=== PATIENT | male | born 1935 | race American Indian/Alaskan Native ===

== ENCOUNTER 2018-09-17 11:58 | Inpatient (IN) | payer MEDICARE ==
--- NOTE | 2018-09-17 13:42 | RAD ---
HISTORY: left pleuritic pain COMPARISON: None available TECHNIQUE: Chest, one view. FINDINGS: LUNGS: No focal consolidation. Please note that chest x-ray has limited sensitivity for the detection of pulmonary masses. PLEURA: No significant pleural effusion identified. No definite pneumothorax . CARDIOVASCULAR: Cardiomegaly. Ectatic aorta. Atherosclerotic calcifications of the aorta. OSSEOUS STRUCTURES: No acute osseous abnormality identified. VISUALIZED UPPER ABDOMEN: Unremarkable. OTHER FINDINGS: None. IMPRESSION: Cardiomegaly.
[2018-09-17 13:50] LABS: BASO # 0.1 K/uL (0.0-0.2); BASO % 0.7 % (0.0-2.0); EOS # 0.1 K/uL (0.0-0.7); EOS % 1.2 % (0.0-4.0); LYMPH % 36.8 % (20.0-40.0); MEAN CELL VOLUME 93.2 fL (80.0-94.0); MEAN CORPUSCULAR HEMOGLOBIN 31.5 pg (27.0-31.0); MEAN CORPUSCULAR HGB CONC 33.8 g/dL (33.0-37.0); MEAN PLATELET VOLUME 7.6 fL (7.2-11.7); MONO # 0.4 K/uL (0.0-0.8); MONO % 5.5 % (0.0-10.0); NEUT # 4.5 K/uL (1.8-7.0); NEUT % 55.8 % (50.0-75.0); RBC 4.43 Mil/uL (4.40-5.90); RED CELL DISTRIBUTION WIDTH 13.2 % (11.5-14.5)
[2018-09-17 14:04] LABS: SQUAMOUS EPITHIAL 1 /hpf (0-5); URINE BILIRUBIN NEGATIVE (NEGATIVE); URINE BLOOD NEGATIVE (NEGATIVE); URINE CLARITY Clear (Clear); URINE COLOR Yellow (YELLOW); URINE GLUCOSE (UA) NORMAL (Normal); URINE LEUKOCYTE ESTERASE NEG Leu/uL (Negative); URINE PROTEIN NEGATIVE (NEGATIVE); URINE UROBILINOGEN NORMAL mg/dL (0.2-1.0)
--- NOTE | 2018-09-17 14:47 | C.PDOC ---
History Of Present Illness 82 year old male presents to the ED for evaluation of difficulty urinating for a few months. The patient reports needing to push in order to start urinating and getting up several times per night to urinate. He also complains of left posterior mid-back pain that is worse with deep breath and certain movements. Denies chest pain, SOB, vomiting, fever, chills, and any other associated symptoms. Time Seen by Provider: 09/17/18 12:07 Chief Complaint (Nursing): Male Genitourinary History Per: Patient History/Exam Limitations: no limitations Onset/Duration Of Symptoms: Other (months. ) Current Symptoms Are (Timing): Still Present Recent travel outside of the [place]: No Past Medical History Reviewed: Historical Data, Nursing Documentation, Vital Signs Vital Signs: Last Vital Signs Temp 97.5 F L 09/17/18 12:02 Pulse 82 09/17/18 12:02 Resp 19 09/17/18 12:02 BP 158/92 H 09/17/18 12:02 Pulse Ox 98 09/17/18 12:02 - [facility] Procedures CORONAR ARTERIOGR-2 CATH (02/16/06) LEFT HEART CARDIAC CATH (02/16/06) LT HEART ANGIOCARDIOGRAM (02/16/06) Family History: States: Unknown Family Hx - Social History Hx Alcohol Use: No Hx Substance Use: No - Immunization History Hx Tetanus Toxoid Vaccination: No Hx Influenza Vaccination: Yes Hx Pneumococcal Vaccination: No Review Of Systems Except As Marked, All Systems Reviewed And Found Negative. Constitutional: Negative for: Fever, Chills Genitourinary: Positive for: Other (difficulty urinating.) Musculoskeletal: Positive for: Back Pain (left posterior mid-back pain.) Psych: Positive for: Depression Physical Exam - Physical Exam Appears: Well, Non-toxic, No Acute Distress Skin: Normal Color, Warm, Dry Head: Atraumatic, Normacephalic Eye(s): bilateral: Normal Inspection Oral Mucosa: Moist Neck: Normal ROM, Supple Chest: Symmetrical Cardiovascular: Rhythm Regular, No Murmur Respiratory: Normal Breath Sounds, No Rales, No Rhonchi, No Wheezing Gastrointestinal/Abdominal: Normal Exam, No Soft, No Tenderness Extremity: Bilateral: Atraumatic, Normal Color And Temperature, Normal ROM Neurological/Psych: Oriented x3, Normal Speech, Normal Cognition ED Course And Treatment - Laboratory Results Result Diagrams: 09/17/18 15:01 09/17/18 15:01 ECG Rhythm: Sinus Rhythm, PVC, Nonspecific Changes Rate From EC O2 Sat by Pulse Oximetry: 98 (RA) Pulse Ox Interpretation: Normal - Other Rad CXR X-Ray: Viewed By Me, Read By Radiologist Interpretation: FINDINGS: LUNGS: No focal consolidation. Please note that chest x-ray has limited sensitivity for the detection of pulmonary masses. PLEURA: No significant pleural effusion identified. No definite pneumothorax . CARDIOVASCULAR: Cardiomegaly. Ectatic aorta. Atherosclerotic calcifications of the aorta. OSSEOUS STRUCTURES: No acute osseous abnormality identified. VISUALIZED UPPER ABDOMEN: Unremarkable. OTHER FINDINGS: None. IMPRESSION: Cardiomegaly. - CT Scan/US Chest CTA Other Rad Studies (CT/US): Read By Radiologist, Radiology Report Reviewed CT/US Interpretation: Accession No. : [id number]. Patient Name / ID : MADISON CABAN / [id number]. Exam Date : 09/17/2018 17:18:12 ( Approved ). Study Comment : Sex / Age : M / 82Y. Creator : Blanche Golden MD. Dictator : Blanche Golden MD. Engineering Officer : Sr. Strategic Sourcing Manager : Blanche Golden MD. Approver2 : Report Date : 09/17/2018 17:37:34. My Comment : . Date of service: 09/17/2018. CTA chest PE protocol. Indication: left pleuritic pain. Technique: Contiguous axial images were obtained through the chest with intravenous contrast enhancement. Sagittal and coronal reconstructions were generated and reviewed. This CT exam was performed using 1 or more of the following dose reduction techniques: Automated exposure control, adjustment of the MAA and/or kV according to patient size, and/or use of iterative reconstruction technique. IV contrast: 100 mL Visipaque 320 IV. . Radiation dose (DLP): 569.7 MGy-cm. Comparison: Chest x-ray performed earlier the same day. Findings: Visualized portions of the inferior thyroid gland appear unremarkable. The mediastinal and hilar vascular structures appear within normal limits. Mild cardiomegaly. Trace pleural effusion. No large central pulmonary embolus. Bilateral segmental pulmonary emboli involving both right upper and lower as well as left lower lobe branches. Pulmonary emboli are also noted within bilateral subsegmental branches in the lower lobes. Bibasilar infiltrates. Trace left pleural effusion. No pneumothorax. Limited visualized portions of the upper abdomen : 1.5 cm right hepatic lobe hypodensity measures approximately 11 HU, possibly cyst. Additional too small to characterize hepatic hypodensity noted inferiorly. Question sclerotic appearance of the osseous structures. Correlate clinically for possibility of metabolic disorder. Somewhat lucent striated appearance of the T10 vertebral body; vertebral body hemangioma is considered however alternatives not excluded. Recommend follow-up MRI of the thoracic spine without and with IV contrast if indicated. Impression: Bilateral pulmonary emboli as above. Question sclerotic appearance of the osseous structures. Correlate clinically for possibility of metabolic disorder. Somewhat lucent striated appearance of the T10 vertebral body; vertebral body hemangioma is considered however alternatives not excluded. Recommend follow-up MRI of the thoracic spine without and with IV contrast if indicated. Bibasilar infiltrates. Trace left pleural effusion. Limited visualized portions of the upper abdomen : 1.5 cm right hepatic lobe hypodensity measures approximately 11 HU, possibly cyst. Additional too small to characterize hepatic hypodensity noted inferiorly. Additional findings as above. Emergent findings discussed with WILMER Puckett on 09/17/18 at 5:28 p.m. Progress Note: Bladder scan is negative for retention. PSA was sent. Blood tests were reviewed, D Dimer is elevated. CTA chest ordered and pos for b/l PE. Case was d/w patient's PMD who requested patient to be admitted to the hospitalist service. Case was d/w Hospitalist personnel scheduler who accepted patient to [facility] for an admission. Heparin bolus and IV drip ordered. Medical Decision Making Medical Decision Making: Plan: -Blood sent. -CXR -Bladder scan. -Urinalysis Disposition - Disposition Disposition: HOSPITALIZED Disposition Time: 18:29 Condition: FAIR - Clinical Impression Clinical Impression: Pulmonary embolism, Pleuritic chest pain, Difficulty urinating - PA / [employer] / Resident Statement MD/DO has reviewed & agrees with the documentation as recorded. - Scribe Statement The provider has reviewed the documentation as recorded by the Scribe (Jania Berkowitz) All medical record entries made by the Scribe were at my direction and personally dictated by me. I have reviewed the chart and agree that the record accurately reflects my personal performance of the history, physical exam, medical decision making, and the department course for this patient. I have also personally directed, reviewed, and agree with the discharge instructions and disposition. Decision To Admit - Pt Status Changed To: Hospital Disposition Of: Inpatient - Admit Certification Admit to Inpatient:: After my assessment, the patient will require hospitalization for at least two midnights. This is because of the severity of symptoms shown, intensity of services needed, and/or the medical risk in this patient being treated as an outpatient. - InPatient: Physician Admission Certification: I certify that this patient requires 2 or more midnights of care for the following reason:: Patient has multiple medical problems including PE, will need more than 2 days of hospitalization. - . Bed Request Type: Telemetry Admitting Physician: Camelia Hernandez Patient Diagnosis: Pulmonary embolism, Pleuritic chest pain, Difficulty urinating
[2018-09-17 14:59] LABS: WHITE BLOOD COUNT 8.1 K/uL (4.8-10.8)
[2018-09-17 15:00] LABS: INR 1.1; PROTHROMBIN TIME 12.4 SECONDS (9.7-12.2)
[2018-09-17 15:01] LABS: D DIMER < 200 ng/mlDDU (0-243); PARTIAL THROMBOPLASTIN TIME 40 SECONDS (21-34)
[2018-09-17 15:05] LABS: BASO % 0.5 % (0.0-2.0); EOS # 0.1 K/uL (0.0-0.7); EOS % 2.8 % (0.0-4.0); HEMOGLOBIN 13.6 g/dL (12.0-18.0); LYMPH # 1.6 K/uL (1.0-4.3); LYMPH % 32.4 % (20.0-40.0); MEAN CELL VOLUME 97.3 fL (80.0-94.0); MEAN CORPUSCULAR HEMOGLOBIN 32.3 pg (27.0-31.0); MEAN CORPUSCULAR HGB CONC 33.1 g/dL (33.0-37.0); MEAN PLATELET VOLUME 8.4 fL (7.2-11.7); MONO # 0.5 K/uL (0.0-0.8); MONO % 10.6 % (0.0-10.0); NEUT # 2.7 K/uL (1.8-7.0); NEUT % 53.7 % (50.0-75.0); RBC 4.22 Mil/uL (4.40-5.90); RED CELL DISTRIBUTION WIDTH 14.7 % (11.5-14.5)
[2018-09-17 15:19] LABS: INR 1.1; PROTHROMBIN TIME 11.8 SECONDS (9.7-12.2)
[2018-09-17 15:37] LABS: ALB/GLOB RATIO 1.5 (1.0-2.1); ALBUMIN 4.2 g/dL (3.5-5.0); ALT/SGPT 12 U/L (21-72); AST/SGOT 21 U/L (17-59); BLOOD UREA NITROGEN 16 mg/dL (9-20); CALCIUM 9.3 mg/dl (8.6-10.4); GFR NON-AFRICAN AMERICAN > 60
[2018-09-17 15:48] LABS: CK-MB 0.78 ng/mL (0.0-3.38)
[2018-09-17] MEDS ORDERED: Iodixanol 320 MG/ML 100 ML BOTTLE IV ONE (16:00)
--- NOTE | 2018-09-17 17:41 | CT ---
Date of service: 09/17/2018 CTA chest PE protocol Indication: left pleuritic pain Technique: Contiguous axial images were obtained through the chest with intravenous contrast enhancement. Sagittal and coronal reconstructions were generated and reviewed. This CT exam was performed using 1 or more of the following dose reduction techniques: Automated exposure control, adjustment of the MAA and/or kV according to patient size, and/or use of iterative reconstruction technique. IV contrast: 100 mL Visipaque 320 IV Radiation dose (DLP): 569.7 MGy-cm. Comparison: Chest x-ray performed earlier the same day. Findings: Visualized portions of the inferior thyroid gland appear unremarkable. The mediastinal and hilar vascular structures appear within normal limits. Mild cardiomegaly. Trace pleural effusion. No large central pulmonary embolus. Bilateral segmental pulmonary emboli involving both right upper and lower as well as left lower lobe branches. Pulmonary emboli are also noted within bilateral subsegmental branches in the lower lobes. Bibasilar infiltrates. Trace left pleural effusion. No pneumothorax. Limited visualized portions of the upper abdomen : 1.5 cm right hepatic lobe hypodensity measures approximately 11 HU, possibly cyst. Additional too small to characterize hepatic hypodensity noted inferiorly. Question sclerotic appearance of the osseous structures. Correlate clinically for possibility of metabolic disorder. Somewhat lucent striated appearance of the T10 vertebral body; vertebral body hemangioma is considered however alternatives not excluded. Recommend follow-up MRI of the thoracic spine without and with IV contrast if indicated. Impression: Bilateral pulmonary emboli as above. Question sclerotic appearance of the osseous structures. Correlate clinically for possibility of metabolic disorder. Somewhat lucent striated appearance of the T10 vertebral body; vertebral body hemangioma is considered however alternatives not excluded. Recommend follow-up MRI of the thoracic spine without and with IV contrast if indicated. Bibasilar infiltrates. Trace left pleural effusion. Limited visualized portions of the upper abdomen : 1.5 cm right hepatic lobe hypodensity measures approximately 11 HU, possibly cyst. Additional too small to characterize hepatic hypodensity noted inferiorly. Additional findings as above. Emergent findings discussed with WILMER Puckett on 09/17/18 at 5:28 p.m.
[2018-09-17] MEDS ORDERED: Heparin 25,000units in D5W 25,000 UNITS/250 ML BAG IV PRN (17:47)
[2018-09-17] MEDS: Heparin25000 units/250ml 1/2NS 25,000 UNITS/250 ML BAG IV PRN (18:37)
[2018-09-17 20:55] VITALS: RESP 20
--- NOTE | 2018-09-17 20:59 | CP.PCM.HP ---
<Adelejosé manuelChico - Last Filed: 09/17/18 20:46> History of Present Illness - History of Present Illness History of Present Illness: PGY-[address] Ivan Patient is an 82 year old male with PMHx DMII and possible BPH who presents with approximately one week of left lower back pain. Patient does note pain is worse with deep inspiration. He has also had increased urinary frequency and urgency without dysuria or fevers. Patient with no history of DVT/PE, does not smoke. He denies shortness of breath or chest pain. No history of asthma, COPD, or CHF. States has to get up 5-6 times thorughout the night to urinate. Right lower back pain does not radiate. No other complaints. Surgeries: CORONAR ARTERIOGR-2 CATH, LEFT HEART CARDIAC CATH (02/16/06), LT HEART ANGIOCARDIOGRAM (02/16/06) Medical Hx: DMII, HTN, BPH (believes he was told he has prostate issue), gout Allergies: NKA Social: Denies smoking, drinking, alcohol use Family hx: Denies Medication: Patient takes home meds for DMII, but unsure what they are, Allopurinol 100 mg po daily, colchicine 0.6 mg po daily PMD: Dr. Reinoso Present on Admission - Present on Admission Any Indicators Present on Admission: No History of DVT/PE: No Review of Systems - Constitutional Constitutional: absent: Chills, Fever - EENT Eyes: absent: Blurred Vision, Pain Nose/Mouth/Throat: absent: Dry Mouth, Mouth Pain - Cardiovascular Cardiovascular: absent: Leg Edema, Palpitations - Respiratory Respiratory: absent: Cough, Dyspnea Additional comments: Back pain with deep inspiration - Gastrointestinal Gastrointestinal: absent: Abdominal Pain, Diarrhea - Genitourinary Genitourinary: Urinary Frequency, Urinary Urgency. absent: Dysuria, Flank Pain - Musculoskeletal Musculoskeletal: absent: Stiffness, Tingling - Integumentary Integumentary: absent: Dry Skin, Pruritus, Rash - Neurological Neurological: absent: Dizziness, Numbness - Psychiatric Psychiatric: Depression. absent: Anxiety - Endocrine Endocrine: Polyuria. absent: Fatigue Past Patient History - Past Social History Smoking Status: Never Smoked - ENDOCRINE/METABOLIC Hx Diabetes Mellitus Type 2: Yes - PSYCHIATRIC Hx Substance Use: No - SURGICAL HISTORY Hx Surgeries: No - ANESTHESIA Hx Anesthesia: No Meds Allergies/Adverse Reactions: Allergies Allergy/AdvReac Type Severity Reaction Status Date / Time No Known Allergies Allergy Verified 09/17/18 12:06 Physical Exam - Constitutional Appears: Non-toxic, No Acute Distress - Head Exam Head Exam: ATRAUMATIC, NORMAL INSPECTION - Eye Exam Eye Exam: EOMI, Normal appearance - ENT Exam ENT Exam: Mucous Membranes Moist - Respiratory Exam Respiratory Exam: Clear to Auscultation Bilateral, NORMAL BREATHING PATTERN. absent: Accessory Muscle Use, Chest Wall Tenderness, Decreased Breath Sounds, Rales, Rhonchi, Wheezes, Respiratory Distress - Cardiovascular Exam Cardiovascular Exam: REGULAR RHYTHM, RRR, +S1, +S2 - GI/Abdominal Exam GI & Abdominal Exam: Normal Bowel Sounds, Soft. absent: Distended, Firm, Tenderness - Extremities Exam Extremities exam: Negative for: pedal edema, tenderness - Back Exam Back exam: NORMAL INSPECTION. absent: paraspinal tenderness - Neurological Exam Neurological exam: Alert, CN II-XII Intact, Oriented x3 - Psychiatric Exam Psychiatric exam: Normal Affect, Normal Mood - Skin Skin Exam: Dry, Intact Results - Vital Signs Recent Vital Signs: Last Vital Signs Temp 98.4 F 09/17/18 15:35 Pulse 80 09/17/18 20:01 Resp 18 09/17/18 17:47 BP 165/95 H 09/17/18 20:01 Pulse Ox 96 09/17/18 20:01 - Labs Result Diagrams: 09/17/18 15:01 09/17/18 15:01 Labs: Laboratory Results - last 24 hr 09/17/18 09/17/18 09/17/18 13:32 13:32 13:32 WBC 8.1 RBC 4.43 Hgb 14.0 Hct 41.3 MCV 93.2 MCH 31.5 H MCHC 33.8 RDW 13.2 Plt Count 313 MPV 7.6 Neut % (Auto) 55.8 Lymph % (Auto) 36.8 Snyder % (Auto) 5.5 Eos % (Auto) 1.2 Baso % (Auto) 0.7 Neut # (Auto) 4.5 Lymph # (Auto) 3.0 Snyder # (Auto) 0.4 Eos # (Auto) 0.1 Baso # (Auto) 0.1 PT 12.4 H INR 1.1 APTT 40 H D-Dimer, Quantitative < 200 Sodium Potassium Chloride Carbon Dioxide Anion Gap BUN Creatinine Est GFR ( Amer) Est GFR (Non-Af Amer) POC Glucose (mg/dL) Random Glucose Calcium Total Bilirubin AST ALT Alkaline Phosphatase Total Creatine Kinase CK-MB (Mass) Troponin I Total Protein Albumin Globulin Albumin/Globulin Ratio Urine Color Yellow Urine Clarity Clear Urine pH 5.0 Ur Specific Neeses 1.018 Urine Protein Negative Urine Glucose (UA) Normal Urine Ketones Negative Urine Blood Negative Urine Nitrate Negative Urine Bilirubin Negative Urine Urobilinogen Normal Ur Leukocyte Esterase Neg Urine WBC (Auto) 1 Urine RBC (Auto) 3 Ur Squamous Epith Cells 1 Hyaline Casts 3-5 H 09/17/18 09/17/18 09/17/18 13:32 15:01 15:01 WBC 5.0 RBC 4.22 L Hgb 13.6 Hct 41.1 MCV 97.3 H D MCH 32.3 H MCHC 33.1 RDW 14.7 H Plt Count 139 D MPV 8.4 Neut % (Auto) 53.7 Lymph % (Auto) 32.4 Snyder % (Auto) 10.6 H Eos % (Auto) 2.8 Baso % (Auto) 0.5 Neut # (Auto) 2.7 Lymph # (Auto) 1.6 Snyder # (Auto) 0.5 Eos # (Auto) 0.1 Baso # (Auto) 0.0 PT 11.8 INR 1.1 APTT 33 D D-Dimer, Quantitative 1927 H Sodium Cancelled Potassium Cancelled Chloride Cancelled Carbon Dioxide Cancelled Anion Gap Cancelled BUN Cancelled Creatinine Cancelled Est GFR ( Amer) Cancelled Est GFR (Non-Af Amer) Cancelled POC Glucose (mg/dL) Random Glucose Cancelled Calcium Cancelled Total Bilirubin Cancelled AST Cancelled ALT Cancelled Alkaline Phosphatase Cancelled Total Creatine Kinase Cancelled CK-MB (Mass) Cancelled Troponin I Cancelled Total Protein Cancelled Albumin Cancelled Globulin Cancelled Albumin/Globulin Ratio Cancelled Urine Color Urine Clarity Urine pH Ur Specific Neeses Urine Protein Urine Glucose (UA) Urine Ketones Urine Blood Urine Nitrate Urine Bilirubin Urine Urobilinogen Ur Leukocyte Esterase Urine WBC (Auto) Urine RBC (Auto) Ur Squamous Epith Cells Hyaline Casts 09/17/18 09/17/18 15:01 18:37 WBC RBC Hgb Hct MCV MCH MCHC RDW Plt Count MPV Neut % (Auto) Lymph % (Auto) Snyder % (Auto) Eos % (Auto) Baso % (Auto) Neut # (Auto) Lymph # (Auto) Snyder # (Auto) Eos # (Auto) Baso # (Auto) PT INR APTT D-Dimer, Quantitative Sodium 138 Potassium 4.0 Chloride 104 Carbon Dioxide 26 Anion Gap 12 BUN 16 Creatinine 1.1 Est GFR ( Amer) > 60 Est GFR (Non-Af Amer) > 60 POC Glucose (mg/dL) 98 Random Glucose 105 Calcium 9.3 Total Bilirubin 0.7 AST 21 ALT 12 L Alkaline Phosphatase 75 Total Creatine Kinase 67 CK-MB (Mass) 0.78 Troponin I < 0.0120 Total Protein 7.0 Albumin 4.2 Globulin 2.8 Albumin/Globulin Ratio 1.5 Urine Color Urine Clarity Urine pH Ur Specific Neeses Urine Protein Urine Glucose (UA) Urine Ketones Urine Blood Urine Nitrate Urine Bilirubin Urine Urobilinogen Ur Leukocyte Esterase Urine WBC (Auto) Urine RBC (Auto) Ur Squamous Epith Cells Hyaline Casts Assessment & Plan - Assessment and Plan (Free Text) Assessment: Acute Pulmonary Embolism: - D Dimer 1926 --> CT Angio ordered in ED - CXR 09/17: IMPRESSION: Cardiomegaly. - CT angio Chest 09/17: Bilateral pulmonary emboli as above. Question sclerotic appearance of the osseous structures. Correlate clinically for possibility of metabolic disorder. Somewhat lucent striated appearance of the T10 vertebral b nik; vertebral body hemangioma is considered however alternatives not excluded. Recommend follow-up MRI of the thoracic spine without and with IV contrast if indicated. Bibasilar infiltrates. Trace left pleural effusion. Limited visualized portions of the upper abdomen : 1.5 cm right hepatic lobe hypodensity measures approximately 11 HU, possibly cyst. Additional too small to characterize hepatic hypodensity noted inferiorly. - Heparin Drip - ASA 81 daily - Fall precautions - Echo - f/u - Cardio consultted, Dr. Reinoso - f/u recs HTN: - Losartan 50 mg PO daily DM II: - ISS - Accuchecks Gout: - Allopurinol 100 mg PO daily - Colchicine 0.6 mg PO daily PPx: - Heparin drip - Fall precautions - Protonix 40 mg PO daily d/w Dr. Marzena Vital, PGY-1 <Negro Ivan - Last Filed: 09/18/18 06:27> Results - Vital Signs Recent Vital Signs: Last Vital Signs Temp 99.6 F 09/18/18 04:36 Pulse 75 09/18/18 04:36 Resp 20 09/18/18 04:36 BP 132/76 09/18/18 04:36 Pulse Ox 95 09/18/18 04:36 - Labs Result Diagrams: 09/17/18 15:01 09/17/18 15:01 Labs: Laboratory Results - last 24 hr 09/17/18 09/17/18 09/17/18 13:32 13:32 13:32 WBC 8.1 RBC 4.43 Hgb 14.0 Hct 41.3 MCV 93.2 MCH 31.5 H MCHC 33.8 RDW 13.2 Plt Count 313 MPV 7.6 Neut % (Auto) 55.8 Lymph % (Auto) 36.8 Snyder % (Auto) 5.5 Eos % (Auto) 1.2 Baso % (Auto) 0.7 Neut # (Auto) 4.5 Lymph # (Auto) 3.0 Snyder # (Auto) 0.4 Eos # (Auto) 0.1 Baso # (Auto) 0.1 PT 12.4 H INR 1.1 APTT 40 H D-Dimer, Quantitative < 200 Sodium Potassium Chloride Carbon Dioxide Anion Gap BUN Creatinine Est GFR ( Amer) Est GFR (Non-Af Amer) POC Glucose (mg/dL) Random Glucose Calcium Total Bilirubin AST ALT Alkaline Phosphatase Total Creatine Kinase CK-MB (Mass) Troponin I Total Protein Albumin Globulin Albumin/Globulin Ratio Urine Color Yellow Urine Clarity Clear Urine pH 5.0 Ur Specific Neeses 1.018 Urine Protein Negative Urine Glucose (UA) Normal Urine Ketones Negative Urine Blood Negative Urine Nitrate Negative Urine Bilirubin Negative Urine Urobilinogen Normal Ur Leukocyte Esterase Neg Urine WBC (Auto) 1 Urine RBC (Auto) 3 Ur Squamous Epith Cells 1 Hyaline Casts 3-5 H 09/17/18 09/17/18 09/17/18 13:32 15:01 15:01 WBC 5.0 RBC 4.22 L Hgb 13.6 Hct 41.1 MCV 97.3 H D MCH 32.3 H MCHC 33.1 RDW 14.7 H Plt Count 139 D MPV 8.4 Neut % (Auto) 53.7 Lymph % (Auto) 32.4 Snyder % (Auto) 10.6 H Eos % (Auto) 2.8 Baso % (Auto) 0.5 Neut # (Auto) 2.7 Lymph # (Auto) 1.6 Snyder # (Auto) 0.5 Eos # (Auto) 0.1 Baso # (Auto) 0.0 PT 11.8 INR 1.1 APTT 33 D D-Dimer, Quantitative 1927 H Sodium Cancelled Potassium Cancelled Chloride Cancelled Carbon Dioxide Cancelled Anion Gap Cancelled BUN Cancelled Creatinine Cancelled Est GFR ( Amer) Cancelled Est GFR (Non-Af Amer) Cancelled POC Glucose (mg/dL) Random Glucose Cancelled Calcium Cancelled Total Bilirubin Cancelled AST Cancelled ALT Cancelled Alkaline Phosphatase Cancelled Total Creatine Kinase Cancelled CK-MB (Mass) Cancelled Troponin I Cancelled Total Protein Cancelled Albumin Cancelled Globulin Cancelled Albumin/Globulin Ratio Cancelled Urine Color Urine Clarity Urine pH Ur Specific Neeses Urine Protein Urine Glucose (UA) Urine Ketones Urine Blood Urine Nitrate Urine Bilirubin Urine Urobilinogen Ur Leukocyte Esterase Urine WBC (Auto) Urine RBC (Auto) Ur Squamous Epith Cells Hyaline Casts 09/17/18 09/17/18 09/18/18 15:01 18:37 01:33 WBC RBC Hgb Hct MCV MCH MCHC RDW Plt Count MPV Neut % (Auto) Lymph % (Auto) Snyder % (Auto) Eos % (Auto) Baso % (Auto) Neut # (Auto) Lymph # (Auto) Snyder # (Auto) Eos # (Auto) Baso # (Auto) PT INR APTT 58 H D D-Dimer, Quantitative Sodium 138 Potassium 4.0 Chloride 104 Carbon Dioxide 26 Anion Gap 12 BUN 16 Creatinine 1.1 Est GFR ( Amer) > 60 Est GFR (Non-Af Amer) > 60 POC Glucose (mg/dL) 98 Random Glucose 105 Calcium 9.3 Total Bilirubin 0.7 AST 21 ALT 12 L Alkaline Phosphatase 75 Total Creatine Kinase 67 CK-MB (Mass) 0.78 Troponin I < 0.0120 Total Protein 7.0 Albumin 4.2 Globulin 2.8 Albumin/Globulin Ratio 1.5 Urine Color Urine Clarity Urine pH Ur Specific Neeses Urine Protein Urine Glucose (UA) Urine Ketones Urine Blood Urine Nitrate Urine Bilirubin Urine Urobilinogen Ur Leukocyte Esterase Urine WBC (Auto) Urine RBC (Auto) Ur Squamous Epith Cells Hyaline Casts Assessment & Plan - Date & Time Date: 09/18/18 (I have seen and examined the patient. I agree with the findings and plan of care as documented by Dr. Vital. Patient with acute pulmonary embolism. Heparin Drip. 2D echo. Also with history of hypertension and diabetes. Continue home meds. NISS and accuchecks. Monitor for acute changes.) Time: 06:26 Attending/Attestation - Attestation I have personally seen and examined this patient.: Yes I have fully participated in the care of the patient.: Yes I have reviewed all pertinent clinical information: Yes
[2018-09-17] MEDS: (Novolin N) Insulin Human Isophane (NPH) 100 u/ml 10 ml vial SC SCH (21:37)
[2018-09-18] MEDS: Pantoprazole 40 mg Susp UD PO SCH (05:28)
[2018-09-18 08:34] LABS: BASO # 0.1 K/uL (0.0-0.2); EOS # 0.1 K/uL (0.0-0.7); HEMOGLOBIN 13.9 g/dL (12.0-18.0); LYMPH # 1.5 K/uL (1.0-4.3); MEAN CELL VOLUME 95.6 fL (80.0-94.0); MEAN CORPUSCULAR HEMOGLOBIN 32.3 pg (27.0-31.0); MEAN CORPUSCULAR HGB CONC 33.8 g/dL (33.0-37.0); MEAN PLATELET VOLUME 8.1 fL (7.2-11.7); MONO # 0.6 K/uL (0.0-0.8); NEUT # 3.7 K/uL (1.8-7.0); RBC 4.31 Mil/uL (4.40-5.90); RED CELL DISTRIBUTION WIDTH 14.4 % (11.5-14.5); WHITE BLOOD COUNT 5.9 K/uL (4.8-10.8)
[2018-09-18] MEDS: (Novolin N) Insulin Human Isophane (NPH) 100 u/ml 10 ml vial SC SCH ×3 (08:54→16:30)
[2018-09-18 09:05] LABS: ALB/GLOB RATIO 1.4 (1.0-2.1); ALBUMIN 4.1 g/dL (3.5-5.0); ALT/SGPT 8 U/L (21-72); AST/SGOT 15 U/L (17-59); BLOOD UREA NITROGEN 14 mg/dL (9-20); CALCIUM 9.4 mg/dl (8.6-10.4); GFR NON-AFRICAN AMERICAN > 60
--- NOTE | 2018-09-18 19:18 | CP.PCM.PN ---
Subjective - Date & Time of Evaluation Date of Evaluation: 09/18/18 Time of Evaluation: 09:00 - Subjective Subjective: Patient seen and examined at bedside. No overnight events reported. Patient does complain of lateral thoracic pain that radiates to his back and worsens with deep inspiration. He denies any fever, chills, Chest Pain, Abdominal Pain, nausea, vomiting, changes in bowel habits or urinary symptoms. Objective - Vital Signs/Intake and Output Vital Signs (last 24 hours): Temp Pulse Resp BP Pulse Ox 97.7 F 91 H 20 134/81 97 09/18/18 15:00 09/18/18 16:30 09/18/18 15:00 09/18/18 15:00 09/18/18 15:00 Intake and Output: 09/18/18 09/19/18 18:59 06:59 Intake Total 320.8 Output Total 1000 Balance -679.2 - Medications Medications: Current Medications Allopurinol (Zyloprim) 100 mg PO DAILY [facility] Last Admin: 09/18/18 09:15 Dose: 100 mg Aspirin (Ecotrin) 81 mg PO DAILY [facility] Last Admin: 09/18/18 09:15 Dose: 81 mg Colchicine (Colocrys) 0.6 mg PO DAILY [facility] Last Admin: 09/18/18 09:14 Dose: 0.6 mg Heparin Sodium/Sodium Chloride (Heparin 45208 Units/250ml 1/2 Normal Saline) 25,000 units in 250 mls @ 10.083 mls/hr IV .Q24H PRN; Protocol Last Admin: 09/17/18 18:37 Dose: 11.4 units/kg/hr, 10.083 mls/hr Insulin Human Regular (Novolin R) 0 unit SC ACHS [facility]; Protocol Losartan Potassium (Cozaar) 50 mg PO DAILY [facility] Last Admin: 09/18/18 09:14 Dose: 50 mg Pantoprazole Sodium (Protonix Susp) 40 mg PO 0600 [facility] Last Admin: 09/18/18 05:28 Dose: 40 mg Tamsulosin HCl (Flomax) 0.4 mg PO DAILY [facility] Last Admin: 09/18/18 09:14 Dose: 0.4 mg - Labs Labs: 09/18/18 08:17 09/18/18 08:17 PT 11.8 SECONDS (9.7-12.2) 09/17/18 15:01 INR 1.1 09/17/18 15:01 APTT 61 SECONDS (21-34) H 09/18/18 08:17 - Additional Findings Additional findings: - Constitutional Appears: Non-toxic, No Acute Distress - Head Exam Head Exam: ATRAUMATIC, NORMAL INSPECTION - Eye Exam Eye Exam: EOMI, Normal appearance - ENT Exam ENT Exam: Mucous Membranes Moist - Respiratory Exam Respiratory Exam: Clear to Auscultation Bilateral, NORMAL BREATHING PATTERN. absent: Accessory Muscle Use, Chest Wall Tenderness, Decreased Breath Sounds, Rales, Rhonchi, Wheezes, Respiratory Distress - Cardiovascular Exam Cardiovascular Exam: REGULAR RHYTHM, RRR, +S1, +S2 - GI/Abdominal Exam GI & Abdominal Exam: Normal Bowel Sounds, Soft. absent: Distended, Firm, Tenderness - Extremities Exam Extremities exam: Negative for: pedal edema, tenderness - Back Exam Back exam: NORMAL INSPECTION. absent: paraspinal tenderness - Neurological Exam Neurological exam: Alert, CN II-XII Intact, Oriented x3 - Psychiatric Exam Psychiatric exam: Normal Affect, Normal Mood - Skin Skin Exam: Dry, Intact Assessment and Plan - Assessment and Plan (Free Text) Assessment: 82 year old male with PMHx DMII admitted for evaluation and treatment of PE Plan: Acute Pulmonary Embolism: - D Dimer 1926 --> CT Angio ordered in ED - CXR 09/17: IMPRESSION: Cardiomegaly. - CT angio Chest 09/17: Bilateral pulmonary emboli as above. Question sclerotic appearance of the osseous structures. Correlate clinically for possibility of metabolic disorder. Somewhat lucent striated appearance of the T10 vertebral body; vertebral body hemangioma is considered however alternatives not excluded. Recommend follow-up MRI of the thoracic spine without and with IV contrast if indicated. Bibasilar infiltrates. Trace left pleural effusion. Limited visualized portions of the upper abdomen : 1.5 cm right hepatic lobe hypodensity measures approximately 11 HU, possibly cyst. Additional too small to characterize hepatic hypodensity noted inferiorly. - Heparin Drip - ASA 81 daily - Fall precautions - Echo - f/u - Cardio consultted, Dr. Reinoso - f/u recs HTN: - Losartan 50 mg PO daily DM II: - ISS - Accuchecks Gout: - Allopurinol 100 mg PO daily - Colchicine 0.6 mg PO daily PPx: - Heparin drip - Fall precautions - Protonix 40 mg PO daily Patient seen and discussed with Attending Gianni Stevens, PGY-2
[2018-09-18] MEDS: Heparin25000 units/250ml 1/2NS 25,000 UNITS/250 ML BAG IV PRN (21:36)
[2018-09-18] MEDS: (Novolin R) Insulin Human Regular 100 units/ml vial SC SCH (21:44)
[2018-09-19] MEDS: Pantoprazole 40 mg Susp UD PO SCH (05:52)
[2018-09-19 06:38] LABS: BASO % 0.7 % (0.0-2.0); EOS # 0.1 K/uL (0.0-0.7); EOS % 1.5 % (0.0-4.0); HEMOGLOBIN 13.9 g/dL (12.0-18.0); LYMPH # 1.6 K/uL (1.0-4.3); LYMPH % 32.7 % (20.0-40.0); MEAN CELL VOLUME 95.2 fL (80.0-94.0); MEAN CORPUSCULAR HEMOGLOBIN 32.8 pg (27.0-31.0); MEAN CORPUSCULAR HGB CONC 34.5 g/dL (33.0-37.0); MEAN PLATELET VOLUME 8.4 fL (7.2-11.7); MONO # 0.6 K/uL (0.0-0.8); MONO % 11.4 % (0.0-10.0); NEUT # 2.6 K/uL (1.8-7.0); NEUT % 53.7 % (50.0-75.0); RBC 4.24 Mil/uL (4.40-5.90); RED CELL DISTRIBUTION WIDTH 14.6 % (11.5-14.5); WHITE BLOOD COUNT 4.9 K/uL (4.8-10.8)
[2018-09-19 06:53] LABS: ALB/GLOB RATIO 1.3 (1.0-2.1); ALT/SGPT 15 U/L (21-72); AST/SGOT 15 U/L (17-59); BLOOD UREA NITROGEN 19 mg/dL (9-20); CALCIUM 9.1 mg/dl (8.6-10.4); GFR NON-AFRICAN AMERICAN 58
[2018-09-19] MEDS: (Novolin R) Insulin Human Regular 100 units/ml vial SC SCH ×2 (08:06→12:57)
[2018-09-19 08:15] VITALS: BP 152/92; TEMP 97.7; O2SAT 97
[2018-09-19 08:47] VITALS: PULSE 87
--- NOTE | 2018-09-19 10:00 | CON ---
DATE: 09/18/2018 REQUESTED BY: Luciana Hernandez MD LOCATION: Presently in room 659 A. REASON FOR CONSULTATION: Requested to see this 82-year-old black male due to chest pain and diagnosis of pulmonary embolism via CT angiogram. HISTORY OF PRESENT ILLNESS: Mr. Tucker is known to me for many years suffering from hypertension, diabetes, gout, BPH etc. who has been totally stable for years; however, yesterday he called me complaining on some exertional shortness of breath and some pain in the left upper back. After discussion over the telephone, I suggested for him to be checked out in the emergency room just in case. The story began several weeks ago after he took a trip in his car to [place] to visit some relatives as he usually does periodically. This took place around the s. After he has been there for several days, he returned back to [place] and right after that he noticed some cough, runny nose, etc. He and his Shi who was also known for many years that his problem was all related to an upper respiratory infection. This situation persisted for several weeks and eventually gradually began to get better, however, over the last several he noticed some shortness of breath on exertion, some rather atypical pain in the left upper back especially with coughing. He denied any sweating of lower extremities. No dizziness. No palpitations or syncope. 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 MEDICATIONS: On arrival includes, metformin, statin, losartan, allopurinol, Colcrys as well as tamsulosin. ALLERGIES: NO KNOWN ALLERGIES FAR I REMEMBER. REVIEW OF SYSTEMS: As mentioned above. No other significant complaint. PHYSICAL EXAMINATION: GENERAL: Reveals a senior black male, very, very pleasant as all his family, in no distress whatsoever. VITAL SIGNS: Relatively stable. Blood pressure slightly elevated in the hospital he gets nervous pulse is regular in the range of about 70 beats per minute via telemetry and occasional to rare PACs. No evidence of any atrophic relation. O2 saturation totally normal. On arrival to the emergency room, in room air, it was 97. SKIN: Warm, dry, no cyanosis or edema. HEENT: Unremarkable for his age. NECK: Supple. No lymphadenopathy or thyromegaly. CHEST: Clear to auscultation. CARDIOVASCULAR: Relatively intact. Jugular veins, carotids normal. Precordium unremarkable. Heart sounds is normal in intensity and regular. Minimal systolic murmur on the left sternal border. ABDOMEN: Unremarkable. CENTRAL NERVOUS SYSTEM: Locomotor also unremarkable. HOSPITAL COURSE: On arrival to the emergency room, he was checked accordingly and most of the investigations performed including a CT angiogram for pulmonary embolism which disclosed subsegmental small bilateral emboli in the both lower lung yañez. CBC was unremarkable. No leukocytosis. Electrolytes normal. Glucose obviously mildly elevated. Renal function unremarkable. D-dimer was elevated about 1000 or so. Chest x-rays slight cardiomegaly and finding of left pleural effusion. No pulmonary infiltrates. Since arrival here, after discussing situation in the emergency room as well as we talked to Dr. Hernandez, he was placed on fractionated heparin and being adjusted according to the aPPT. At this point in time, he is totally asymptomatic. CONCLUSION: Bilateral small subsegmental pulmonary emboli, source not identified yet and probably (perhaps due to lower exts. DVT) began after the long trip by car to [place], stay of origin that he regularly goes there. PLAN: To continue anticoagulation, hopefully to switch him to NOAC such as apixaban 5 mg twice a day as soon as the Duplex of lower extremities performed looking for the source. An echocardiogram which I did at the [facility] of last year obviously discussed with Dr. Hernandez were reviewed once again. In the meantime, his diabetes, hypertension, and gout will continue to be addressed. Vicente Reinoso MD PRIETO
--- NOTE | 2018-09-19 10:56 | CP.PCM.PN ---
Subjective - Date & Time of Evaluation Date of Evaluation: 09/19/18 Time of Evaluation: 10:53 - Subjective Subjective: PGY-[address] Echols Patient seen and examined at bedside. No acute events overnight. Nurse called to inform me that [employer] had reported that dopple US showed LLE DVT. Official report is pending. He is currently on heparin drip. Patient states to me that his symptoms have improved significantly. He is not having shortness of breath. States still has pain sometimes when he coughs, but it is less frequent. Objective - Vital Signs/Intake and Output Vital Signs (last 24 hours): Temp Pulse Resp BP Pulse Ox 97.7 F 87 20 152/92 H 97 09/19/18 07:00 09/19/18 07:00 09/19/18 07:00 09/19/18 07:00 09/19/18 07:00 Intake and Output: 09/19/18 09/19/18 06:59 18:59 Intake Total 851.6 Output Total 900 Balance -48.4 - Medications Medications: Current Medications Allopurinol (Zyloprim) 100 mg PO DAILY [facility] Last Admin: 09/18/18 09:15 Dose: 100 mg Aspirin (Ecotrin) 81 mg PO DAILY [facility] Last Admin: 09/18/18 09:15 Dose: 81 mg Colchicine (Colocrys) 0.6 mg PO DAILY [facility] Last Admin: 09/18/18 09:14 Dose: 0.6 mg Heparin Sodium/Sodium Chloride (Heparin 62252 Units/250ml 1/2 Normal Saline) 25,000 units in 250 mls @ 10.083 mls/hr IV .Q24H PRN; Protocol Last Admin: 09/18/18 21:36 Dose: 11.4 units/kg/hr, 10.083 mls/hr Insulin Human Regular (Novolin R) 0 unit SC ACHS [facility]; Protocol Last Admin: 09/19/18 08:06 Dose: 2 units Losartan Potassium (Cozaar) 50 mg PO DAILY [facility] Last Admin: 09/18/18 09:14 Dose: 50 mg Pantoprazole Sodium (Protonix Susp) 40 mg PO 0600 [facility] Last Admin: 09/19/18 05:52 Dose: 40 mg Tamsulosin HCl (Flomax) 0.4 mg PO DAILY [facility] Last Admin: 09/18/18 09:14 Dose: 0.4 mg - Labs Labs: 09/19/18 06:23 09/19/18 06:23 PT 11.8 SECONDS (9.7-12.2) 09/17/18 15:01 INR 1.1 09/17/18 15:01 APTT 64 SECONDS (21-34) H 09/19/18 06:23
--- NOTE | 2018-09-19 14:59 | CP.PCM.DIS ---
<Ch[place] Vital - Last Filed: 09/19/18 14:44> Provider - Provider Date of Admission: 09/17/18 18:27 Attending physician: Camelia Hernandez MD Consults: 09/17/18 18:36 Physician Consult Stat Comment: Consulting Provider: Vicente Reinoso Consulting Physician: Vicente Reinoso Reason for Consult: PE,r/o Afib Time Spent in preparation of Discharge (in minutes): 45 Diagnosis - Discharge Diagnosis (1) Deep vein thrombosis of left lower extremity Status: Acute (2) Pulmonary embolism Status: Acute Hospital Course - Lab Results Lab Results: Micro Results 09/17/18 13:32 Urine Urine Culture - Final Proteus Mirabilis Most Recent Lab Values WBC 4.9 K/uL (4.8-10.8) 09/19/18 06:23 RBC 4.24 Mil/uL (4.40-5.90) L 09/19/18 06:23 Hgb 13.9 g/dL (12.0-18.0) 09/19/18 06:23 Hct 40.4 % (35.0-51.0) 09/19/18 06:23 MCV 95.2 fL (80.0-94.0) H 09/19/18 06:23 MCH 32.8 pg (27.0-31.0) H 09/19/18 06:23 MCHC 34.5 g/dL (33.0-37.0) 09/19/18 06:23 RDW 14.6 % (11.5-14.5) H 09/19/18 06:23 Plt Count 141 K/uL (130-400) 09/19/18 06:23 MPV 8.4 fL (7.2-11.7) 09/19/18 06:23 Neut % (Auto) 53.7 % (50.0-75.0) 09/19/18 06:23 Lymph % (Auto) 32.7 % (20.0-40.0) 09/19/18 06:23 [place] % (Auto) 11.4 % (0.0-10.0) H 09/19/18 06:23 Eos % (Auto) 1.5 % (0.0-4.0) 09/19/18 06:23 Baso % (Auto) 0.7 % (0.0-2.0) 09/19/18 06:23 Neut # (Auto) 2.6 K/uL (1.8-7.0) 09/19/18 06:23 Lymph # (Auto) 1.6 K/uL (1.0-4.3) 09/19/18 06:23 [place] # (Auto) 0.6 K/uL (0.0-0.8) 09/19/18 06:23 Eos # (Auto) 0.1 K/uL (0.0-0.7) 09/19/18 06:23 Baso # (Auto) 0.0 K/uL (0.0-0.2) 09/19/18 06:23 PT 11.8 SECONDS (9.7-12.2) 09/17/18 15:01 INR 1.1 09/17/18 15:01 APTT 64 SECONDS (21-34) H 09/19/18 06:23 D-Dimer, Quantitative 1927 ng/mlDDU (0-243) H 09/17/18 15:01 Sodium 135 mmol/L (132-148) 09/19/18 06:23 Potassium 3.6 mmol/L (3.6-5.2) 09/19/18 06:23 Chloride 103 mmol/L (98-107) 09/19/18 06:23 Carbon Dioxide 25 mmol/L (22-30) 09/19/18 06:23 Anion Gap 10 (10-20) 09/19/18 06:23 BUN 19 mg/dL (9-20) 09/19/18 06:23 Creatinine 1.2 mg/dL (0.8-1.5) 09/19/18 06:23 Est GFR ( Amer) > 60 09/19/18 06:23 Est GFR (Non-Af Amer) 58 09/19/18 06:23 POC Glucose (mg/dL) 177 mg/dL (65-110) H 09/19/18 06:37 Random Glucose 147 mg/dL (75-110) H 09/19/18 06:23 Calcium 9.1 mg/dl (8.6-10.4) 09/19/18 06:23 Magnesium 1.6 mg/dL (1.6-2.3) 09/18/18 08:17 Total Bilirubin 0.7 mg/dL (0.2-1.3) 09/19/18 06:23 AST 15 U/L (17-59) L 09/19/18 06:23 ALT 15 U/L (21-72) L D 09/19/18 06:23 Alkaline Phosphatase 75 U/L (38-126) 09/19/18 06:23 Total Creatine Kinase 67 U/L (55-170) 09/17/18 15:01 CK-MB (Mass) 0.78 ng/mL (0.0-3.38) 09/17/18 15:01 Troponin I < 0.0120 ng/mL (0.00-0.120) 09/17/18 15:01 Total Protein 7.0 g/dL (6.3-8.3) 09/19/18 06:23 Albumin 4.0 g/dL (3.5-5.0) 09/19/18 06:23 Globulin 3.0 gm/dL (2.2-3.9) 09/19/18 06:23 Albumin/Globulin Ratio 1.3 (1.0-2.1) 09/19/18 06:23 TSH 3rd Generation 1.89 mIU/L (0.46-4.68) 09/18/18 08:17 Urine Color Yellow (YELLOW) 09/17/18 13:32 Urine Clarity Clear (Clear) 09/17/18 13:32 Urine pH 5.0 (5.0-8.0) 09/17/18 13:32 Ur Specific Basye 1.018 (1.003-1.030) 09/17/18 13:32 Urine Protein Negative mg/dL (NEGATIVE) 09/17/18 13:32 Urine Glucose (UA) Normal mg/dL (Normal) 09/17/18 13:32 Urine Ketones Negative mg/dL (NEGATIVE) 09/17/18 13:32 Urine Blood Negative (NEGATIVE) 09/17/18 13:32 Urine Nitrate Negative (NEGATIVE) 09/17/18 13:32 Urine Bilirubin Negative (NEGATIVE) 09/17/18 13:32 Urine Urobilinogen Normal mg/dL (0.2-1.0) 09/17/18 13:32 Ur Leukocyte Esterase Neg Marilee/uL (Negative) 09/17/18 13:32 Urine WBC (Auto) 1 /hpf (0-5) 09/17/18 13:32 Urine RBC (Auto) 3 /hpf (0-3) 09/17/18 13:32 Ur Squamous Epith Cells 1 /hpf (0-5) 09/17/18 13:32 Hyaline Casts 3-5 /lpf (0-2) H 09/17/18 13:32 - Hospital Course Hospital Course: Initial HPI: Patient is an 82 year old male with PMHx DMII and possible BPH who presents with approximately one week of left lower back pain. Patient does note pain is worse with deep inspiration. He has also had increased urinary frequency and urgency without dysuria or fevers. Patient with no history of DVT/PE, does not smoke. He denies shortness of breath or chest pain. No history of asthma, COPD, or CHF. States has to get up 5-6 times thorughout the night to urinate. Right lower back pain does not radiate. No other complaints. Hospital Course: Patient presented with chief complaint of back pain that was worse with inspiration and mild shortness of breath. D-dimer checked in the ED was elevated and subsequent CTA demonstrated bilateral PE. Patient was restarted on home meds and started on heparin drip and cardiology was consulted, Dr. Reinoso (who is also patient's primary) to rule out A fib and placed on telemetry. Patient was sinus throughout stay. Dr. Reinoso reviewed old echo and will follow up with the patient following discharge. Repeat echo done as well is just pending official read. Bilateral dopplers on day of discharge revealed DVT in LLE. Patient was discharged on Eliquis. By day of discharge symptoms had largely resolved. Imaging: - CXR 09/17: Cardiomegaly. - CT angio Chest 09/17: Bilateral pulmonary emboli as above. Question sclerotic appearance of the osseous structures. Correlate clinically for possibility of metabolic disorder. Somewhat lucent striated appearance of the T10 vertebral body; vertebral body hemangioma is considered however alternatives not excluded. Recommend follow-up MRI of the thoracic spine without and with IV contrast if indicated. Bibasilar infiltrates. Trace left pleural effusion. Limited visualized portions of the upper abdomen : 1.5 cm right hepatic lobe hypodensity measures approximately 11 HU, possibly cyst. Additional too small to characterize hepatic hypodensity noted inferiorly. B/l LE duplex 09/19/18 - positive for DVT, pending official read Echo 09/17/18 - pending official read Discharge Exam - Head Exam Head Exam: ATRAUMATIC, NORMAL INSPECTION - Eye Exam Eye Exam: EOMI, Normal appearance - ENT Exam ENT Exam: Mucous Membranes Moist - Respiratory Exam Respiratory Exam: Clear to PA & Lateral, UNREMARKABLE. absent: Accessory Muscle Use, Chest Wall Tenderness, Decreased Breath Sounds, Rhonchi, Wheezes - Cardiovascular Exam Cardiovascular Exam: REGULAR RHYTHM, +S1, +S2 - GI/Abdominal Exam GI & Abdominal Exam: Normal Bowel Sounds, Soft. absent: Tenderness - Extremities Exam Extremities exam: normal inspection - Neurological Exam Neurological exam: Alert, CN II-XII Intact, Oriented x3 - Psychiatric Exam Psychiatric exam: Normal Affect, Normal Mood - Skin Skin Exam: Dry, Intact Discharge Plan - Discharge Medications Prescriptions: RX: Allopurinol [Zyloprim] 100 mg PO DAILY #30 tab RX: Apixaban [Eliquis] 5 mg PO BID #60 tablet Ciprofloxacin [Cipro] 250 mg PO BID #6 tab RX: Colchicine 1 tab PO DAILY #30 capsule RX: Losartan [Cozaar] 50 mg PO DAILY #30 tab RX: metFORMIN [glucOPHAGE] 500 mg PO BID #60 tab RX: Tamsulosin [Flomax] 0.4 mg PO DAILY #30 cap - Follow Up Plan Condition: FAIR Disposition: HOME/ ROUTINE Instructions: Ciprofloxacin (Systemic), Heart Healthy Diet, Diabetes Exchange Diet, Diabetes Diet , Pulmonary Embolism (Blood Clot in the Lungs) (DC), Pleuritic Chest Pain (DC), Apixaban, Metformin, Tamsulosin, Going Home on Blood Thinners Additional Instructions: Patient is cleared for discharge per Dr. Esparza Please continue taking the following medications: -Allopurinol 100 mg one tab by mouth daily at 8am -Colchicine 0.6 mg one tab by mouth daily at 8am -Metformin 500 mg one tab by mouth two times per day at 8am and 8pm -Flomax 0.4 mg one tab by mouth daily at 8am -Cozaar 50 mg one tab by mouth daily at 8am In addition, the following medications have been prescribed which you should start taking: -Eliquis (Apixaban) 5 mg one tab by mouth two times per day at 8am and 8pm -Cipro 250 mg one tab by mouth two times per day at 8am and 8pm for 3 days Please make sure to follow up with Dr. Reinoso regarding your diagnosis of DVT and PE within 5-7 days Please return to ER if symptoms recur or worsen. Referrals: Vicente Reinoso MD [Staff Provider] - <Ru Esparza - Last Filed: 09/19/18 15:27> Provider - Provider Date of Admission: 09/17/18 18:27 Attending physician: Camelia Hernandez MD Consults: 09/17/18 18:36 Physician Consult Stat Comment: Consulting Provider: Vicente Reinoso Consulting Physician: Vicente Reinoso Reason for Consult: PE,r/o Afib Hospital Course - Lab Results Lab Results: Micro Results 09/17/18 13:32 Urine Urine Culture - Final Proteus Mirabilis Most Recent Lab Values WBC 4.9 K/uL (4.8-10.8) 09/19/18 06:23 RBC 4.24 Mil/uL (4.40-5.90) L 09/19/18 06:23 Hgb 13.9 g/dL (12.0-18.0) 09/19/18 06:23 Hct 40.4 % (35.0-51.0) 09/19/18 06:23 MCV 95.2 fL (80.0-94.0) H 09/19/18 06:23 MCH 32.8 pg (27.0-31.0) H 09/19/18 06:23 MCHC 34.5 g/dL (33.0-37.0) 09/19/18 06:23 RDW 14.6 % (11.5-14.5) H 09/19/18 06:23 Plt Count 141 K/uL (130-400) 09/19/18 06:23 MPV 8.4 fL (7.2-11.7) 09/19/18 06:23 Neut % (Auto) 53.7 % (50.0-75.0) 09/19/18 06:23 Lymph % (Auto) 32.7 % (20.0-40.0) 09/19/18 06:23 [place] % (Auto) 11.4 % (0.0-10.0) H 09/19/18 06:23 Eos % (Auto) 1.5 % (0.0-4.0) 09/19/18 06:23 Baso % (Auto) 0.7 % (0.0-2.0) 09/19/18 06:23 Neut # (Auto) 2.6 K/uL (1.8-7.0) 09/19/18 06:23 Lymph # (Auto) 1.6 K/uL (1.0-4.3) 09/19/18 06:23 [place] # (Auto) 0.6 K/uL (0.0-0.8) 09/19/18 06:23 Eos # (Auto) 0.1 K/uL (0.0-0.7) 09/19/18 06:23 Baso # (Auto) 0.0 K/uL (0.0-0.2) 09/19/18 06:23 PT 11.8 SECONDS (9.7-12.2) 09/17/18 15:01 INR 1.1 09/17/18 15:01 APTT 64 SECONDS (21-34) H 09/19/18 06:23 D-Dimer, Quantitative 1927 ng/mlDDU (0-243) H 09/17/18 15:01 Sodium 135 mmol/L (132-148) 09/19/18 06:23 Potassium 3.6 mmol/L (3.6-5.2) 09/19/18 06:23 Chloride 103 mmol/L (98-107) 09/19/18 06:23 Carbon Dioxide 25 mmol/L (22-30) 09/19/18 06:23 Anion Gap 10 (10-20) 09/19/18 06:23 BUN 19 mg/dL (9-20) 09/19/18 06:23 Creatinine 1.2 mg/dL (0.8-1.5) 09/19/18 06:23 Est GFR ( Amer) > 60 09/19/18 06:23 Est GFR (Non-Af Amer) 58 09/19/18 06:23 POC Glucose (mg/dL) 177 mg/dL (65-110) H 09/19/18 06:37 Random Glucose 147 mg/dL (75-110) H 09/19/18 06:23 Calcium 9.1 mg/dl (8.6-10.4) 09/19/18 06:23 Magnesium 1.6 mg/dL (1.6-2.3) 09/18/18 08:17 Total Bilirubin 0.7 mg/dL (0.2-1.3) 09/19/18 06:23 AST 15 U/L (17-59) L 09/19/18 06:23 ALT 15 U/L (21-72) L D 09/19/18 06:23 Alkaline Phosphatase 75 U/L (38-126) 09/19/18 06:23 Total Creatine Kinase 67 U/L (55-170) 09/17/18 15:01 CK-MB (Mass) 0.78 ng/mL (0.0-3.38) 09/17/18 15:01 Troponin I < 0.0120 ng/mL (0.00-0.120) 09/17/18 15:01 Total Protein 7.0 g/dL (6.3-8.3) 09/19/18 06:23 Albumin 4.0 g/dL (3.5-5.0) 09/19/18 06:23 Globulin 3.0 gm/dL (2.2-3.9) 09/19/18 06:23 Albumin/Globulin Ratio 1.3 (1.0-2.1) 09/19/18 06:23 TSH 3rd Generation 1.89 mIU/L (0.46-4.68) 09/18/18 08:17 Urine Color Yellow (YELLOW) 09/17/18 13:32 Urine Clarity Clear (Clear) 09/17/18 13:32 Urine pH 5.0 (5.0-8.0) 09/17/18 13:32 Ur Specific [place] 1.018 (1.003-1.030) 09/17/18 13:32 Urine Protein Negative mg/dL (NEGATIVE) 09/17/18 13:32 Urine Glucose (UA) Normal mg/dL (Normal) 09/17/18 13:32 Urine Ketones Negative mg/dL (NEGATIVE) 09/17/18 13:32 Urine Blood Negative (NEGATIVE) 09/17/18 13:32 Urine Nitrate Negative (NEGATIVE) 09/17/18 13:32 Urine Bilirubin Negative (NEGATIVE) 09/17/18 13:32 Urine Urobilinogen Normal mg/dL (0.2-1.0) 09/17/18 13:32 Ur Leukocyte Esterase Neg Marilee/uL (Negative) 09/17/18 13:32 Urine WBC (Auto) 1 /hpf (0-5) 09/17/18 13:32 Urine RBC (Auto) 3 /hpf (0-3) 09/17/18 13:32 Ur Squamous Epith Cells 1 /hpf (0-5) 09/17/18 13:32 Hyaline Casts 3-5 /lpf (0-2) H 09/17/18 13:32 Attending/Attestation - Attestation I have personally seen and examined this patient.: Yes I have fully participated in the care of the patient.: Yes I have reviewed all pertinent clinical information, including history, physical exam and plan: Yes Notes (Text): 09/19/18 15:21 Medical attending: Patient was seen and examined by me. Reviewed the above note by the resident And agree with the above note. Per discussion with the patient and family member - they had a long drive south at around [facility] and ever since then he was reportedly short of breath and having [place]S. We explained to them the CTA findings showing a PE The patient has had a lower extremity venous doppler study showing a DVT. As mentioned previously the patient is currently on a heparin ggt for the PE and will be changed over to oral Eliquis PO BID He will need to follow up with his primary care physician as well. Family members were present at bedside and we answered their questions as well. Patient has been able to ambulate without assisntace Ru Esparza
[2018-09-19 15:57] LABS: TOTAL PSA 19.6 ng/mL (< or = 4.0)
--- NOTE | 2018-09-19 17:03 | CARD ---
APPROVED REPORT Date of service: 09/19/2018 EXAM: Two-dimensional and M-mode echocardiogram with Doppler and color Doppler. Other Information Quality : GoodRhythm : INDICATION Pulmonary Embolism Syncope pe on ct chest RISK FACTORS Hypertension Diabetes 2D DIMENSIONS IVSd1.3 (0.7-1.1cm)LVDd4.7 (3.9-5.9cm) PWd1.1 (0.7-1.1cm)LA [id number] (18-58mL) LVDs3.1 (2.5-4.0cm)FS (%) 33.3 % LVEF (%)61.9 (>50%)LVEF (Nunez's)54.31 % M-Mode DIMENSIONS RVDd2.88 (2.1-3.2cm)Left Atrium (MM)3.07 (2.5-4.0cm) IVSd1.14 (0.7-1.1cm)Aortic Root3.90 (2.2-3.7cm) LVDd4.79 (4.0-5.6cm)Aortic Cusp Exc.2.01 (1.5-2.0cm) PWd1.07 (0.7-1.1cm)FS (%) 28 % LVDs3.47 (2.0-3.8cm)LVEF (%)54 (>50%) Aortic Valve AI P 1/2 [id number] Mitral Valve MV E Mzajqkmm87.5cm/sMV A Uktxjuso65.2cm/sE/A ratio0.5 TDI Lateral E' Peak V5.13cm/sMedial E' Peak V4.42cm/sE/Lateral E'7.5 E/Medial E'8.7 Tricuspid Valve TR Peak Kqmrvhcr791ya/sTR Peak Gr.[id number] <Conclusion> tds. poor window. normal size la,lv & ra rv. normal lv wall motion,thickness & systolic funciton with lvef of 60-65%, lv diastolic dysfunction grade one. sclerotic trileaflet aortic valve with mild ai. normal mitral,tv & pv. mild tr & pi with normal pulmonary systolic pressures of 33 mm of hg. no pericardial effusion. mildly dilated aortic root.
--- NOTE | 2018-09-19 18:21 | PN ---
DATE: 09/19/2018 LOCATION: Still in room 659 A. SUBJECTIVE: Remains in very good spirits and he offers no complaints whatsoever to me. He feels great. He just came back up from having the duplex ultrasound of lower extremities. He is eating well and he has no pain, no discomfort in the lower extremities. Denies any chest pain, shortness of breath, or palpitations. Rest of the review of systems otherwise negative. PHYSICAL EXAMINATION: GENERAL: Appears well, resting very comfortably. The is at the bedside and there is a deacon from his [employer] who is also visiting him. VITAL SIGNS: Remain very stable, blood pressure in the range of about 138/80, 138/70; earlier it was a little high because of going to the ultrasound, etc. Right now, is even better. Respiratory rate is unremarkable. He remains afebrile. Pulse is normal and regular at about 80 per minute. CARDIOPULMONARY: From the cardiology viewpoint, jugular veins and carotids remain normal. LUNGS: Totally clear to auscultation. HEART: Sounds normal in intensity and regular. Minimal systolic ejection murmur as reported yesterday, otherwise no major issues here. ABDOMEN: Remains unremarkable. CENTRAL NERVOUS SYSTEM: Intact lower extremities. No swelling. No pain. EXTREMITIES: Intact. COMPLEMENTARY DATA: Hemograms remain normal. PTT around 64 seconds. Electrolytes unremarkable. Blood sugar mildly elevated, but this is being taken care, etc. and his medications for diabetes. I discussed the situation with Dr. Echols and the plan is to wait for the ultrasound of the legs, which apparently the unofficial reports is showing some possibility for DVT, we are awaiting the official report. He is to be discharged today on oral anticoagulant Apixaban and I told the and him to come to the office in a week or so, to give me a call once he reached home. He is to resume all the previous medications as he has been doing in the past. IMPRESSION: Pulmonary emboli, deep venous thrombosis as a culprtit, hypertension, and diabetes. Vicente Reinoso MD [facility]
--- NOTE | 2018-09-19 21:36 | CARD ---
APPROVED REPORT Date of service: 09/17/2018 EKG Measurement Heart [id number] <Conclusion> Sinus rhythm with premature supraventricular complexes Left axis deviation Nonspecific T wave abnormality Abnormal ECG
--- NOTE | 2018-09-20 15:04 | VASCLAB ---
Date of service: 09/19/2018 PROCEDURE: Lower Extremity Venous Duplex Exam. HISTORY: Leg swelling PRIORS: None. TECHNIQUE: Bilateral common femoral, femoral, popliteal and posterior tibial, peroneal and great saphenous veins were evaluated. Flow was assessed with color Doppler, compressibility, assessment of phasic flow and augmentation response. Report prepared by Dhiraj Gonzalez, GENO, RVT FINDINGS: RIGHT: 1. Common Femoral Vein: 1.1. Compressibility - Fully compressible: Thrombus - None : Flow - Phasic: Augmentation -Normal: Reflux - None. 2. Femoral Vein: 2.1. Compressibility - Fully compressible: Thrombus - None : Flow - Phasic: Augmentation -Normal: Reflux - None. 3. Popliteal Vein: 3.1. Compressibility - Fully compressible: Thrombus - None : Flow - Phasic: Augmentation -Normal: Reflux - None. 4. Posterior Tibial Vein: 4.1. Compressibility - Fully compressible: Thrombus - None: Flow - Phasic: Augmentation -Normal: Reflux - None. 5. Peroneal Vein: 5.1. Compressibility - Fully compressible: Thrombus - None: Flow - Phasic: Augmentation -Normal: Reflux - None. 6. Great Saphenous Vein: 6.1. Compressibility - Fully compressible: Thrombus - None: Flow - Phasic: Augmentation - Normal: Reflux - None. LEFT: 1. Common Femoral Vein: 1.1. Compressibility - Fully compressible: Thrombus - None: Flow - Phasic: Augmentation -Normal: Reflux - None. 2. Femoral Vein: 2.1. Compressibility - Fully compressible: Thrombus - None: Flow - Phasic: Augmentation -Normal: Reflux - None. 3. Popliteal Vein: 3.1. Compressibility - Partial: Thrombus - Acute : Flow - Absent : Augmentation - None: Reflux - None. 4. Posterior Tibial Vein: 4.1. Compressibility - Partial: Thrombus - Acute: Flow - Absent : Augmentation - None: Reflux - None. 5. Peroneal Vein: 5.1. Compressibility - Fully compressible: Thrombus - None: Flow - Phasic: Augmentation -Normal: Reflux - None. 6. Great Saphenous Vein: 6.1. Compressibility - Fully compressible: Thrombus - None: Flow - Phasic: Augmentation - Normal: Reflux - None. OTHER FINDINGS: MARCIN Mora notified about the findings. IMPRESSION: Right: No evidence of deep or superficial vein thrombosis of the right lower extremity. Normal valve function noted of the right side. Left: Acute thrombosis of the left popliteal and posterior tibial veins with severe reduction of the venous return.
== END 2018-09-19 16:00 | disposition home or self-care (01) | DRG 299 ==
LOC: C.ER 11:58 → C.9E 18:27 → C.6T 20:19
PROVIDERS: ADMIT Internal Medicine; ATTEND Internal Medicine
DX: I82.432 Acute embolism and thrombosis of left popliteal vein (principal); I26.99 Other pulmonary embolism without acute cor pulmonale; E11.9 Type 2 diabetes mellitus without complications; I82.442 Acute embolism and thrombosis of left tibial vein; I10 Essential (primary) hypertension; I51.7 Cardiomegaly; M1A.9XX1 Chronic gout, unspecified, with tophus (tophi); N40.1 Benign prostatic hyperplasia with lower urinary tract symptoms; R39.12 Poor urinary stream; M54.9 Dorsalgia, unspecified

== ENCOUNTER 2018-10-13 17:51 | Outpatient (CLI) | payer MEDICARE | END 2018-10-13 17:52 | disposition home or self-care (01) | LOC: C.RADIC 17:51 → C.RADH 17:52 ==

== ENCOUNTER 2018-11-07 14:23 | Outpatient (CLI) | payer MEDICARE | END 2018-11-07 14:24 | disposition home or self-care (01) | LOC: C.EKG 14:23 | DX: I49.9 Cardiac arrhythmia, unspecified (principal) ==

== ENCOUNTER 2018-12-09 11:45 | Outpatient (CLI) | payer MEDICARE | END 2018-12-09 11:46 | disposition home or self-care (01) | LOC: C.LAB 11:45 ==

== ENCOUNTER 2019-01-09 10:24 | Outpatient (CLI) | payer MEDICARE | END 2019-01-09 10:25 | disposition home or self-care (01) | LOC: C.LAB 10:24 | DX: R97.20 Elevated prostate specific antigen [PSA] (principal) ==

== ENCOUNTER 2019-01-24 09:50 | Day surgery (SDC) | payer MEDICARE ==
[2019-01-20 08:28] VITALS: BMI 27.4
[2019-01-24] MEDS ORDERED: Lidocaine 2% Jelly (Uro-Jet) ONE (12:00)
[2019-01-24] MEDS ORDERED: cefTRIAXone 1 gm 1 GM/100 ML BAG IVPB ONE (12:00)
[2019-01-24] MEDS ORDERED: Propofol 10 mg/ml Inj (20 ML) ONE (12:02)
--- NOTE | 2019-01-24 12:57 | PCM.SURG1 ---
Surgeon's Initial Post Op Note - Surgeon's Notes Surgeon: [employer] Tooling Engineer: none Type of Anesthesia: IV Sedation Anesthesia Administered By: Micheal Pre-Operative Diagnosis: bph elevated psa. Operative Findings: bph prostatitis. Post-Operative Diagnosis: bph prostatitis Operation Performed: cystoscopy prostate us biopsies. Specimen/Specimens Removed: prostate tissue Estimated Blood Loss: EBL {In ML}: 1 Blood Products Given: N/A Drains Used: No Drains Post-Op Condition: Good Date of Surgery/Procedure: 01/24/19 Time of Surgery/Procedure: 12:57
[2019-01-24] MEDS ORDERED: HYDROmorphone 0.5 mg/0.5 ml ISec IVP PRN (13:09)
[2019-01-24] MEDS ORDERED: Lactated Ringer's 1,000 ML IV SCH (13:15)
[2019-01-24 14:41] VITALS: BP 175/91; PULSE 63; RESP 15; TEMP 97.6; O2SAT 99
--- NOTE | 2019-01-25 02:58 | OP ---
PROCEDURE DATE: 01/24/2019 PREOPERATIVE DIAGNOSES: Benign prostatic hypertrophy, elevated prostate-specific antigen. POSTOPERATIVE DIAGNOSES: Benign prostatic hypertrophy, elevated prostate-specific antigen, prostatitis. OPERATION: Cystoscopy, prostate ultrasound biopsy. SURGEON: Flynn Nelson MD GROSS FINDINGS: Good bladder capacity. No tumors or stones were observed during emptying or filling of the bladder. Mild trabeculated bladder. Urethral orifices not visualized because of very large median lobe, enlarged lateral lobes of the prostate gland meeting in the midline. 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 Some inflammation of the prostate gland noted. Membranous and pendulous urethra normal except for a short area with slight fibrosis of the bulbous urethra. TECHNIQUE: This patient was placed in lithotomy position. The external genitalia were prepped and draped in the usual sterile fashion. A #22 panendoscope was introduced in the bladder findings as above. Cystoscopy was terminated, then the patient's prostate was examined again, appeared to be a small indurated area in the left lateral lobe. Digital biopsies were performed, number of 5, minimal bleeding was present during the procedure, then a rectal ultrasound probe was placed in the patient's rectum. The prostrate was scanned. Then biopsy needle was performed in the right lateral lobe numbering 6, minimal bleeding was present during the procedure. After this was accomplished, the rectum was thoroughly irrigated with normal saline, no bleeding was present. After the procedure, the patient withstood the procedure well and returned to recovery room in satisfactory condition. Flynn Nelson MD
== END 2019-01-24 14:39 | disposition home or self-care (01) ==
LOC: C.SDS 09:50
PROVIDERS: ATTEND Urology
DX: N42.1 Congestion and hemorrhage of prostate (principal); R97.20 Elevated prostate specific antigen [PSA]; N41.9 Inflammatory disease of prostate, unspecified
CPT/HCPCS: 55700; 82948; 88305; 88342; J0696